=== PATIENT | male | born 1950 | race Caucasian/White ===

== ENCOUNTER 2022-03-06 11:05 | Emergency (ER) | payer MEDICARE ==
[2022-03-06] MEDS ORDERED: Cephalexin 500 MG Cap ONE (12:00)
== END 2022-03-06 12:10 | disposition home or self-care (01) ==
LOC: LB.ED 11:05
DX: L03.114 Cellulitis of left upper limb (principal); E78.00 Pure hypercholesterolemia, unspecified; I10 Essential (primary) hypertension; Z79.899 Other long term (current) drug therapy; Z79.82 Long term (current) use of aspirin; Z79.84 Long term (current) use of oral hypoglycemic drugs
CPT/HCPCS: 36415; 85025; 99283; A9270